=== PATIENT | female | born 1945 | race Caucasian/White ===

== ENCOUNTER 2019-04-16 09:44 | Outpatient (CLI) | payer MEDICARE, MEDICAID ==
[2019-04-16] MEDS ORDERED: MELO15TA24 PO (10:15)
[2019-04-16] MEDS ORDERED: LEVO25TA4 PO (10:15)
[2019-04-16] MEDS ORDERED: ATOR40TA78 PO (10:15)
[2019-04-16] MEDS ORDERED: MULT1TAB96 PO (10:15)
[2019-04-16] MEDS ORDERED: acetaminophen PO (10:15)
[2019-04-16] MEDS ORDERED: vitamin D3 PO (10:15)
[2019-04-16] MEDS ORDERED: LISI-167 PO (10:15)
[2019-04-16 10:58] LABS: BASOPHILS # (AUTO) 0.05 x10^3/uL (0-0.1); BASOPHILS % (AUTO) 1 % (0-1); EOSINOPHILS # (AUTO) 0.19 x10^3/uL (0-0.4); EOSINOPHILS % (AUTO) 3 % (1-7); LYMPHOCYTES # (AUTO) 1.93 x10^3/uL (1-3.4); LYMPHOCYTES % (AUTO) 33 % (22-44); MD NO; MEAN CORPUSCULAR HEMOGLOBIN 29.7 pg (27.0-34.8); MEAN CORPUSCULAR HGB CONC 33.1 g/dL (32.4-35.8); MEAN CORPUSCULAR VOLUME 89.6 fL (80-100); MEAN PLATELET VOLUME 8.8 fL (7.4-10.4); MONOCYTES # (AUTO) 0.46 x10^3/uL (0.2-0.8); MONOCYTES % (AUTO) 8 % (2-9); NEUTROPHILS % (AUTO) 55 % (42-75); PLATELET COUNT 196 x10^3/uL (130-400); RED BLOOD COUNT 4.22 x10^6/uL (3.82-5.3); RED CELL DISTRIBUTION WIDTH 13.9 % (9.6-15.2)
[2019-04-16 11:04] LABS: ALANINE AMINOTRANSFERASE 54 U/L (12-78); ALBUMIN 3.8 g/dL (3.4-5.0); ANION GAP 4 mmol/L (5-15); CALCIUM 9.1 mg/dL (8.5-10.1); CHLORIDE 106 mmol/L (98-107); CREATININE 1.06 mg/dL (0.55-1.02)
[2019-04-16 11:06] LABS: ALKALINE PHOSPHATASE 101 U/L (45-117); BILIRUBIN,TOTAL 0.6 mg/dL (0.2-1.0); TOTAL PROTEIN 7.4 g/dL (6.4-8.2)
== END 2019-04-16 23:59 | disposition home or self-care (01) ==
LOC: STAR 09:44
PROVIDERS: ATTEND Surgery
DX: Z01.818 Encounter for other preprocedural examination (principal); K80.20 Calculus of gallbladder without cholecystitis without obstruction
CPT/HCPCS: 36415; 71046; 80053; 85025; 93005

== ENCOUNTER 2019-04-21 06:03 | Day surgery (SDC) | payer MEDICARE, MEDICAID ==
[~2019-04-21] VITALS: Ht 157.5 cm; Wt 77.0 kg
[~2019-04-21 06:03] MED LIST: ATOR40TA78 PO; LEVO25TA4 PO; LISI-167 PO; MELO15TA24 PO; MULT1TAB96 PO; acetaminophen PO; vitamin D3 PO
[2019-04-21] MEDS ORDERED: LACTATED RINGERS 1,000 ML IV SCH (06:34)
[2019-04-21 06:37] VITALS: BP 143/83
[2019-04-21] MEDS ORDERED: BUPIVACAINE/PF 0.5% ONE (06:43)
[2019-04-21] MEDS ORDERED: LIDOCAINE-MPF 1%, 2ML INFIL ONE (07:00)
[2019-04-21] MEDS ORDERED: INDOCYANINE GREEN 25 MG VIAL IV ONE (07:00)
[2019-04-21] MEDS ORDERED: INDOCYANINE GREEN 25 MG VIAL ONE (07:01)
[2019-04-21] MEDS ORDERED: MIDAZOLAM 1 MG/ML, 2ML ONE (07:07)
[2019-04-21] MEDS ORDERED: FENTANYL PF 250 MCG/5ML ONE (07:08)
[2019-04-21] MEDS ORDERED: PROPOFOL 10 MG/ML, 20ML ONE (08:16)
[2019-04-21] MEDS ORDERED: ROCURONIUM 10MG/ML,5ML ONE (08:16)
[2019-04-21] MEDS ORDERED: ONDANSETRON 2MG/ML, 2ML ONE (08:16)
[2019-04-21] MEDS ORDERED: DEXAMETHASONE 4 MG/ML, 1ML ONE (08:16)
[2019-04-21] MEDS ORDERED: SUCCINYLCHOLINE 20 MG/ML, 10ML ONE (08:16)
[2019-04-21] MEDS ORDERED: CEFAZOLIN 1,000 MG ONE (08:16)
[2019-04-21] MEDS ORDERED: OXYcodone 5 MG/5 ML ORAL.SOL UDC PO PRN (09:00)
[2019-04-21] MEDS ORDERED: ONDANSETRON 2MG/ML, 2ML IVPush PRN (09:00)
[2019-04-21] MEDS ORDERED: ALBUTEROL SULFATE 2.5 MG/3 ML NPPB PRN (09:00)
[2019-04-21] MEDS ORDERED: hydrALAzine 20 MG/ML, 1ML IV PRN (09:00)
[2019-04-21] MEDS ORDERED: MEPERIDINE/PF 25MG/0.5ML IVPush PRN (09:00)
[2019-04-21] MEDS ORDERED: HYDROmorphone 1 MG/ML, 1ML INJ IV PRN (09:00)
[2019-04-21] MEDS ORDERED: PROMETHAZINE 25 MG/ML, 1ML IV PRN (09:00)
[2019-04-21] MEDS ORDERED: LABETALOL 5MG/ML, 20ML IV PRN (09:00)
[2019-04-21] MEDS ORDERED: KETOROLAC 30 MG/1 ML IV PRN (09:00)
[2019-04-21] MEDS ORDERED: METOCLOPRAMIDE 5 MG/ML, 2ML IV PRN (09:00)
[2019-04-21] MEDS ORDERED: FENTANYL PF 100 MCG/2ML IV PRN (09:00)
[2019-04-21] MEDS ORDERED: FENTANYL PF 100 MCG/2ML ONE (09:49)
[2019-04-21] MEDS ORDERED: OXYcodone 5 MG/5 ML ORAL.SOL UDC ONE (09:49)
[2019-04-21] MEDS ORDERED: KETOROLAC 30 MG/1 ML ONE (09:50)
== END 2019-04-21 14:10 | disposition home or self-care (01) ==
LOC: OUT 06:03
PROVIDERS: ATTEND Surgery
DX: K80.10 Calculus of gallbladder with chronic cholecystitis without obstruction (principal); E78.5 Hyperlipidemia, unspecified; I12.9 Hypertensive chronic kidney disease with stage 1 through stage 4 chronic kidney disease, or unspecified chronic kidney disease; N18.9 Chronic kidney disease, unspecified; E03.9 Hypothyroidism, unspecified; E55.9 Vitamin D deficiency, unspecified; Z79.1 Long term (current) use of non-steroidal anti-inflammatories (NSAID); Z79.890 Hormone replacement therapy; Z79.899 Other long term (current) drug therapy; Z90.49 Acquired absence of other specified parts of digestive tract; Z90.710 Acquired absence of both cervix and uterus; Z96.652 Presence of left artificial knee joint; Z98.890 Other specified postprocedural states; Z82.49 Family history of ischemic heart disease and other diseases of the circulatory system; Z80.0 Family history of malignant neoplasm of digestive organs
CPT/HCPCS: 47562; 88304; J0330; J0690; J1100; J1885; J2250; J2405; J2704; J3010; J7120

== ENCOUNTER 2019-09-28 09:30 | Outpatient (CLI) | payer MEDICARE, MEDICAID ==
[2019-09-28 10:29] LABS: BASOPHILS # (AUTO) 0.04 x10^3/uL (0-0.1); BASOPHILS % (AUTO) 1 % (0-1); EOSINOPHILS # (AUTO) 0.25 x10^3/uL (0-0.4); EOSINOPHILS % (AUTO) 5 % (1-7); LYMPHOCYTES # (AUTO) 2.01 x10^3/uL (1-3.4); LYMPHOCYTES % (AUTO) 39 % (22-44); MD NO; MEAN CORPUSCULAR HEMOGLOBIN 29.8 pg (27.0-34.8); MEAN CORPUSCULAR HGB CONC 32.6 g/dL (32.4-35.8); MEAN CORPUSCULAR VOLUME 91.4 fL (80-100); MEAN PLATELET VOLUME 8.4 fL (7.4-10.4); MONOCYTES % (AUTO) 8 % (2-9); NEUTROPHILS # (AUTO) 2.42 x10^3/uL (1.8-6.8); NEUTROPHILS % (AUTO) 47 % (42-75); PLATELET COUNT 185 x10^3/uL (130-400); RED CELL DISTRIBUTION WIDTH 13.5 % (9.6-15.2)
[2019-09-28 10:40] LABS: INTERNATIONAL NORMALIZED RATIO 0.94 (0.93-1.1)
[2019-09-28 10:42] LABS: ANION GAP 5 mmol/L (5-15); CALCIUM 9.2 mg/dL (8.5-10.1); CHLORIDE 109 mmol/L (98-107)
[2019-09-28 10:47] LABS: ALANINE AMINOTRANSFERASE 57 U/L (12-78); ALKALINE PHOSPHATASE 101 U/L (45-117); BILIRUBIN,TOTAL 0.6 mg/dL (0.2-1.0); CREATININE 0.89 mg/dL (0.55-1.02); TOTAL PROTEIN 7.8 g/dL (6.4-8.2)
[2019-10-07] MEDS ORDERED: OXYC-302 PO (14:15)
[2019-10-09] MEDS ORDERED: TIZA4TAB2 PO (11:19)
== END 2019-09-28 23:59 | disposition home or self-care (01) ==
LOC: STAR 09:30
PROVIDERS: ATTEND Neurological Surgery
DX: Z01.818 Encounter for other preprocedural examination (principal); M48.02 Spinal stenosis, cervical region
CPT/HCPCS: 36415; 71046; 80053; 85025; 85610; 85730; 93005

== ENCOUNTER → 2019-12-16 | Outpatient (CLI) | payer MEDICARE, MEDICAID ==
[~2019-12-16] MED LIST changes: +ACET-1600 PO; +CHOL10003 PO; +OXYC-302 PO; +TIZA4TAB2 PO; +[UNRECOGNIZED DRUG - OTHER] PO
[2019-12-16 09:40] LABS: BASOPHILS # (AUTO) 0.08 x10^3/uL (0-0.1); BASOPHILS % (AUTO) 1 % (0-1); EOSINOPHILS # (AUTO) 0.44 x10^3/uL (0-0.4); EOSINOPHILS % (AUTO) 8 % (1-7); LYMPHOCYTES % (AUTO) 34 % (22-44); MD NO; MEAN CORPUSCULAR HEMOGLOBIN 29.2 pg (27.0-34.8); MEAN CORPUSCULAR HGB CONC 32.2 g/dL (32.4-35.8); MEAN CORPUSCULAR VOLUME 90.6 fL (80-100); MONOCYTES # (AUTO) 0.42 x10^3/uL (0.2-0.8); MONOCYTES % (AUTO) 7 % (2-9); NEUTROPHILS # (AUTO) 2.94 x10^3/uL (1.8-6.8); NEUTROPHILS % (AUTO) 50 % (42-75); PLATELET COUNT 240 x10^3/uL (130-400); RED BLOOD COUNT 4.26 x10^6/uL (3.82-5.3); RED CELL DISTRIBUTION WIDTH 13.4 % (9.6-15.2)
[2019-12-16 09:49] LABS: INTERNATIONAL NORMALIZED RATIO 0.97 (0.93-1.1)
[2019-12-16 09:50] LABS: ALBUMIN 3.9 g/dL (3.4-5.0); ANION GAP 4 mmol/L (5-15); CALCIUM 9.8 mg/dL (8.5-10.1); CHLORIDE 108 mmol/L (98-107)
[2019-12-16 10:05] LABS: ALANINE AMINOTRANSFERASE 28 U/L (12-78); ALKALINE PHOSPHATASE 95 U/L (45-117); BILIRUBIN,TOTAL 0.5 mg/dL (0.2-1.0); CREATININE 0.95 mg/dL (0.55-1.02); TOTAL PROTEIN 7.4 g/dL (6.4-8.2)
== END | disposition home or self-care (01) ==
LOC: STAR 07:53
PROVIDERS: ATTEND Neurological Surgery
DX: Z01.818 Encounter for other preprocedural examination (principal); M48.062 Spinal stenosis, lumbar region with neurogenic claudication
CPT/HCPCS: 36415; 71046; 80053; 85025; 85610; 85730; 93005

== ENCOUNTER 2019-12-30 05:40 | Inpatient (IN) | payer MEDICARE, MEDICAID ==
[~2019-12-30] VITALS: Ht 157.5 cm; Wt 83.9 kg
[2019-12-30] MEDS ORDERED: LACTATED RINGERS 1,000 ML IV SCH (06:32)
[2019-12-30] MEDS ORDERED: CHLORHEXIDINE 15 ML UDC ONE (06:39)
[2019-12-30] MEDS ORDERED: BUPIVACAINE/EPI 0.5% 1:200K ONE (06:46)
[2019-12-30] MEDS ORDERED: BACITRACIN 50,000 UNIT ONE (06:46)
[2019-12-30] MEDS ORDERED: FENTANYL PF 100 MCG/2ML ONE ×3 (06:58→09:27)
[2019-12-30] MEDS ORDERED: MIDAZOLAM 1 MG/ML, 2ML ONE (06:58)
[2019-12-30] MEDS ORDERED: CEFAZOLIN 1,000 MG ONE (06:59)
[2019-12-30] MEDS ORDERED: ONDANSETRON 2MG/ML, 2ML ONE (06:59)
[2019-12-30] MEDS ORDERED: SUCCINYLCHOLINE 20 MG/ML, 10ML ONE (06:59)
[2019-12-30] MEDS ORDERED: PROPOFOL 10 MG/ML, 20ML ONE (06:59)
[2019-12-30] MEDS ORDERED: NEOSTIGMINE 1 MG/ML, 10ML ONE (06:59)
[2019-12-30] MEDS ORDERED: DEXAMETHASONE 4 MG/ML, 1ML ONE (06:59)
[2019-12-30] MEDS ORDERED: GLYCOPYRROLATE 0.2MG/1ML, 5ML ONE (06:59)
[2019-12-30] MEDS ORDERED: ROCURONIUM 10MG/ML,5ML ONE (06:59)
[2019-12-30] MEDS ORDERED: CHLORHEXIDINE 15 ML UDC MM ONE (07:00)
[2019-12-30] MEDS ORDERED: PHENYLEPHRINE 10 MG/ML ONE (07:28)
[2019-12-30] MEDS ORDERED: EPHEDRINE 50 MG/ML, 1ML ONE (07:28)
[2019-12-30] MEDS ORDERED: OXYcodone 5 MG/5 ML ORAL.SOL UDC PO PRN (08:00)
[2019-12-30] MEDS ORDERED: HYDROcodone/APAP 7.5-325MG/15ML UDC PO PRN (08:00)
[2019-12-30] MEDS ORDERED: HYDROmorphone 1 MG/ML, 1ML INJ IVPush PRN (08:00)
[2019-12-30] MEDS ORDERED: MEPERIDINE/PF 25MG/0.5ML IVPush PRN (08:00)
[2019-12-30] MEDS ORDERED: METHOCARBAMOL 1,000 MG in DEXTROSE 5% 100 ML IV PRN (08:00)
[2019-12-30] MEDS ORDERED: PROMETHAZINE 25 MG/ML, 1ML IVPush PRN (08:00)
[2019-12-30] MEDS ORDERED: BACITRACIN 50,000 UNIT IRRIG ONE (08:02)
[2019-12-30] MEDS ORDERED: BUPIVACAINE/EPI 0.5% 1:200K INFIL ONE (08:02)
[2019-12-30] MEDS: FENTANYL PF 100 MCG/2ML IV PRN ×3 (09:11→09:31)
[2019-12-30] MEDS ORDERED: OXYcodone 5 MG/5 ML ORAL.SOL UDC ONE (09:27)
[2019-12-30 10:45] VITALS: BP 121/63
[2019-12-30] MEDS ORDERED: ONDANSETRON 2MG/ML, 2ML IV PRN (11:00)
[2019-12-30] MEDS ORDERED: HYDROcodone/APAP 5/325 TABLET PO PRN (11:00)
[2019-12-30] MEDS ORDERED: PROMETHAZINE 25 MG/ML, 1ML IM PRN (11:00)
[2019-12-30] MEDS ORDERED: HYDROmorphone 2 MG/ML, 1ML IM PRN (11:00)
[2019-12-30] MEDS ORDERED: DIPHENHYDRAMINE 50 MG/ML, 1ML IVPush PRN (11:00)
[2019-12-30] MEDS ORDERED: BISACODYL 10 MG SUPP PR PRN (11:00)
[2019-12-30] MEDS ORDERED: MAGNESIUM HYDROXIDE 8%, 30ML UDC PO PRN (11:00)
[2019-12-30] MEDS ORDERED: LABETALOL 5MG/ML, 20ML IV PRN (11:00)
[2019-12-30] MEDS ORDERED: DIAZEPAM 5 MG/ML, 2ML IV PRN (11:30)
[2019-12-30 12:22] VITALS: BP 103/68
[2019-12-30] MEDS: NS + 20MEQ KCL 1,000 ML IV SCH (15:33)
[2019-12-30] MEDS: CEFAZOLIN PMX 1GM/50ML 50 ML IVPB SCH (15:39)
[2019-12-30] MEDS ORDERED: METHOCARBAMOL 750 MG TABLET PO PRN (17:00)
[2019-12-30 21:03] VITALS: BP 110/68
[2019-12-30] MEDS: ATORVASTATIN 20 MG TABLET PO SCH (22:34)
[2019-12-31] VITALS: BP 115/65
[2019-12-31] MEDS: CEFAZOLIN PMX 1GM/50ML 50 ML IVPB SCH (00:12)
[2019-12-31 04:29] VITALS: BP 108/60
[2019-12-31] MEDS: LEVOTHYROXINE 75 MCG TABLET PO SCH (05:29)
[2019-12-31] MEDS: NS + 20MEQ KCL 1,000 ML IV SCH ×2 (05:29→16:27)
[2019-12-31 05:45] LABS: BASOPHILS # (AUTO) 0.01 x10^3/uL (0-0.1); BASOPHILS % (AUTO) 0 % (0-1); EOSINOPHILS % (AUTO) 0 % (1-7); LYMPHOCYTES # (AUTO) 1.17 x10^3/uL (1-3.4); LYMPHOCYTES % (AUTO) 15 % (22-44); MD NO; MEAN CORPUSCULAR HGB CONC 32.1 g/dL (32.4-35.8); MEAN PLATELET VOLUME 8.7 fL (7.4-10.4); MONOCYTES # (AUTO) 0.49 x10^3/uL (0.2-0.8); MONOCYTES % (AUTO) 6 % (2-9); NEUTROPHILS # (AUTO) 6.14 x10^3/uL (1.8-6.8); NEUTROPHILS % (AUTO) 79 % (42-75); PLATELET COUNT 197 x10^3/uL (130-400); RED BLOOD COUNT 3.63 x10^6/uL (3.82-5.3); RED CELL DISTRIBUTION WIDTH 13.4 % (9.6-15.2)
[2019-12-31 05:49] LABS: ALBUMIN 3.2 g/dL (3.4-5.0); ANION GAP 7 mmol/L (5-15); CALCIUM 8.7 mg/dL (8.5-10.1); CHLORIDE 111 mmol/L (98-107)
[2019-12-31 08:00] VITALS: BP 96/61
[2019-12-31] MEDS: LISINOPRIL 10 MG TABLET PO SCH (08:10)
[2019-12-31] MEDS: SENNA/DOCUSATE TABLET PO SCH (08:10)
[2019-12-31] MEDS ORDERED: OXYC5TAB3 PO (10:26)
[2019-12-31] MEDS: OXYcodone IR 5MG TABLET PO PRN ×2 (11:59→18:45)
[2019-12-31 15:33] VITALS: BP 90/57
[2019-12-31] MEDS: ATORVASTATIN 20 MG TABLET PO SCH (20:11)
[2019-12-31 21:06] VITALS: BP 101/61
[2020-01-01] MEDS: OXYcodone IR 5MG TABLET PO PRN ×3 (00:28→09:17)
[2020-01-01 01:38] VITALS: BP 94/60
[2020-01-01 05:53] LABS: BASOPHILS # (AUTO) 0.04 x10^3/uL (0-0.1); BASOPHILS % (AUTO) 1 % (0-1); EOSINOPHILS # (AUTO) 0.11 x10^3/uL (0-0.4); EOSINOPHILS % (AUTO) 1 % (1-7); LYMPHOCYTES # (AUTO) 2.94 x10^3/uL (1-3.4); LYMPHOCYTES % (AUTO) 37 % (22-44); MD NO; MEAN CORPUSCULAR HEMOGLOBIN 29.4 pg (27.0-34.8); MEAN CORPUSCULAR HGB CONC 32.4 g/dL (32.4-35.8); MEAN PLATELET VOLUME 8.3 fL (7.4-10.4); MONOCYTES # (AUTO) 0.59 x10^3/uL (0.2-0.8); MONOCYTES % (AUTO) 7 % (2-9); NEUTROPHILS # (AUTO) 4.29 x10^3/uL (1.8-6.8); NEUTROPHILS % (AUTO) 54 % (42-75); PLATELET COUNT 186 x10^3/uL (130-400); RED BLOOD COUNT 3.39 x10^6/uL (3.82-5.3); RED CELL DISTRIBUTION WIDTH 13.7 % (9.6-15.2)
[2020-01-01] MEDS: LEVOTHYROXINE 75 MCG TABLET PO SCH (06:22)
[2020-01-01 07:06] VITALS: BP 94/61
[2020-01-01] MEDS: NS + 20MEQ KCL 1,000 ML IV SCH (07:40)
[2020-01-01] MEDS: LISINOPRIL 10 MG TABLET PO SCH (09:00)
[2020-01-01] MEDS: SENNA/DOCUSATE TABLET PO SCH (09:16)
[2020-01-01] MEDS ORDERED: METH750T2 PO (11:35)
== END 2020-01-01 11:46 | disposition home or self-care (01) | DRG 520 ==
LOC: OUT 05:40 → 4NE 10:36 → ORIP 10:43 → OUT 12:50 → 4NE 14:01 → DCLOUNGE 01-01 11:16
PROVIDERS: ADMIT Neurological Surgery; ATTEND Neurological Surgery
PROC: 01NR0ZZ Release Sacral Nerve, Open Approach (ICD-10-PCS; 2019-12-30)
PROC: 00NY0ZZ Release Lumbar Spinal Cord, Open Approach (ICD-10-PCS; 2019-12-30)
PROC: 01NB0ZZ Release Lumbar Nerve, Open Approach (ICD-10-PCS; principal; 2019-12-30 07:30)
DX: M48.062 Spinal stenosis, lumbar region with neurogenic claudication (principal); M48.07 Spinal stenosis, lumbosacral region; M54.17 Radiculopathy, lumbosacral region; M54.16 Radiculopathy, lumbar region; E03.9 Hypothyroidism, unspecified; E78.5 Hyperlipidemia, unspecified; Z20.828 Contact with and (suspected) exposure to other viral communicable diseases; I10 Essential (primary) hypertension; M19.90 Unspecified osteoarthritis, unspecified site; Z82.49 Family history of ischemic heart disease and other diseases of the circulatory system; Z80.9 Family history of malignant neoplasm, unspecified
CPT/HCPCS: 36415; 72100; 80048; 82040; 85025; 87635; G0378; J0690; J1100; J2250; J2270; J2405; J2550; J2704; J2710; J3010; J3480; J0330; J2370; J2800; J7120